=== PATIENT | male | born 1995 | race Caucasian/White ===

== ENCOUNTER 2019-03-04 17:39 | Emergency (ER) | payer OTHER ==
[~2019-03-04] VITALS: Ht 175.3 cm; Wt 72.6 kg
[2019-03-04 17:48] VITALS: BP 126/70
[2019-03-04] MEDS ORDERED: KEFLEX500 M1 PO (17:55)
== END 2019-03-04 18:10 | disposition home or self-care (01) ==
LOC: M.ERS 17:39
DX: S61.411A Laceration without foreign body of right hand, initial encounter (principal); W26.8XXA Contact with other sharp object(s), not elsewhere classified, initial encounter; Y93.89 Activity, other specified; Y92.89 Other specified places as the place of occurrence of the external cause; Y99.8 Other external cause status